=== PATIENT | female | born 1995 | race Two or more races ===

== ENCOUNTER 2017-12-28 02:16 | Inpatient (IN) | payer BC, MEDICARE ==
[~2017-12-28] VITALS: Ht 177.8 cm; Wt 87.8 kg
[2017-12-28] MEDS ORDERED: ALPR1TAB7 PO (02:25)
[2017-12-28 03:10] LABS: BASOPHILS % (AUTO) 0.4 % (0.0-2.0); EOSINOPHILS % (AUTO) 1.5 % (1.0-6.0); HEMATOCRIT 38.1 % (36-46); HEMOGLOBIN 12.8 g/dL (12.0-16.0); LYMPHOCYTES # (AUTO) 2.9 K/uL (1.0-4.8); LYMPHOCYTES % (AUTO) 48.7 % (22.0-44.0); MEAN CORPUSCULAR HGB CONC 33.7 G/dL (31.0-37.0); MEAN CORPUSCULAR VOLUME 86 fL (80-100); MONOCYTES # (AUTO) 0.5 K/uL (0.1-1.0); MONOCYTES % (AUTO) 7.9 % (2.0-9.0); NEUTROPHILS # (AUTO) 2.5 K/uL (1.8-7.7); NEUTROPHILS % (AUTO) 41.5 % (40.0-70.0); PLATELET COUNT (AUTO) 204 K/uL (150-450); RED BLOOD CELL COUNT(AUTO) 4.43 MIL/uL (4.00-5.20); RED CELL DISTRIBUTION WIDTH 18.5 % (11.5-14.5)
[2017-12-28 03:12] LABS: ANION GAP 4 mmol/L (8-16); CALCIUM, TOTAL 8.3 mg/dL (8.8-10.5); CARBON DIOXIDE 28 mmol/L (22-29); CHLORIDE 103 mmol/L (98-107); CREATININE 0.67 mg/dL (0.60-1.30); GLOMERULAR FILTR. RATE CALC > 60 mL/min (>60); GLUCOSE,RANDOM 86 mg/dL (70-110); POTASSIUM 3.7 mmol/L (3.5-5.1); SODIUM SERUM 135 mmol/L (136-145); UREA NITROGEN, BLOOD 11 mg/dL (7-18)
[2017-12-28 03:18] LABS: ALANINE AMINOTRANSFERASE 21 U/L (12-78); ALBUMIN 3.6 g/dL (3.4-5.0); ALKALINE PHOSPHATASE 88 U/L (46-116); ASPARTATE AMINOTRANSFERASE 16 U/L (15-37); BILIRUBIN,TOTAL 0.2 mg/dL (0.1-1.0); TOTAL PROTEIN, SERUM 7.6 g/dL (6.4-8.2)
[2017-12-28 03:49] LABS: AMPHET/METH SCREEN,URINE NEGATIVE (NEGATIVE); BARBITURATE SCREEN, URINE NEGATIVE (NEGATIVE); BENZODIAZEPINES SCREEN,URINE POSITIVE (NEGATIVE); CANNABINOID SCREEN,URINE NEGATIVE (NEGATIVE); COCAINE SCREEN,URINE NEGATIVE (NEGATIVE); METHADONE SCREEN, URINE NEGATIVE (NEGATIVE); OPIATE SCREEN,URINE NEGATIVE (NEGATIVE)
[2017-12-28 03:50] LABS: PHENCYCLIDINE SCREEN,URINE NEGATIVE (NEGATIVE)
[2017-12-28] MEDS ORDERED: HALOPERIDOL 5 MG TABLET PO PRN (12:00)
[2017-12-28] MEDS ORDERED: IBUPROFEN 400 MG TABLET PO PRN (15:00)
[2017-12-28] MEDS ORDERED: MAGNESIUM HYDROXIDE SUSPENSION 30 ML UDCUP PO PRN (15:00)
[2017-12-28] MEDS ORDERED: PETROLATUM,WHITE 71 GM JELLY TP PRN (15:00)
[2017-12-28] MEDS ORDERED: MAG HYDROX/AL HYDROX/SIMETH ES 30 ML SUSPENSION UDCUP PO PRN (15:00)
[2017-12-28] MEDS ORDERED: ALBUTEROL SULFATE HFA 90 MCG/PUFF 8 GM INHALER IH PRN (15:00)
[2017-12-28] MEDS ORDERED: DOCUSATE SODIUM 100 MG CAPSULE PO PRN (15:00)
[2017-12-28] MEDS ORDERED: ONDANSETRON HCL 4 MG TABLET PO PRN (15:00)
[2017-12-28 15:27] VITALS: BP 123/83
[2017-12-28 16:09] VITALS: BP 120/66
[2017-12-28] MEDS: LORazepam 2 MG TABLET PO PRN (17:43)
[2017-12-29 00:40] VITALS: BP 118/81
[2017-12-29] MEDS: ACETAMINOPHEN 325 MG TABLET PO PRN ×2 (00:44→21:56)
[2017-12-29 08:26] VITALS: BP 116/77
[2017-12-29] MEDS: MetroNIDAZOLE 500 MG TABLET PO SCH ×3 (08:37→16:35)
[2017-12-29 08:52] LABS: HEMOGLOBIN A1C 5.2 % (4.5-6.2)
[2017-12-29] MEDS ORDERED: NICOTINE 14 MG/24 HOUR PATCH TD SCH (09:00)
[2017-12-29 09:30] LABS: CHOL/HDL RATIO 2.5 (3.9-5.7); THYROID STIMULATING HORMONE 1.11 uIU/mL (0.36-3.74)
[2017-12-29] MEDS ORDERED: MAG HYDROX/AL HYDROX/SIMETH ES 30 ML SUSPENSION UDCUP PO PRN (11:00)
[2017-12-29] MEDS ORDERED: PETROLATUM,WHITE 71 GM JELLY TP PRN (11:00)
[2017-12-29] MEDS ORDERED: ALBUTEROL SULFATE HFA 90 MCG/PUFF 8 GM INHALER IH PRN (11:00)
[2017-12-29] MEDS ORDERED: MAGNESIUM HYDROXIDE SUSPENSION 30 ML UDCUP PO PRN (11:00)
[2017-12-29] MEDS ORDERED: DOCUSATE SODIUM 100 MG CAPSULE PO PRN (11:00)
[2017-12-29 16:01] VITALS: BP 123/75
[2017-12-29] MEDS: BusPIRone HCL 10 MG TABLET PO SCH (16:35)
[2017-12-29] MEDS: LORazepam 2 MG TABLET PO PRN (20:01)
[2017-12-29] MEDS: ZOLPIDEM TARTRATE 10 MG TABLET PO PRN (21:53)
[2017-12-30 00:16] VITALS: BP 115/60
[2017-12-30] MEDS: BusPIRone HCL 10 MG TABLET PO SCH ×2 (08:13→16:36)
[2017-12-30] MEDS: MetroNIDAZOLE 500 MG TABLET PO SCH ×3 (08:13→16:36)
[2017-12-30 08:30] VITALS: BP 122/73
[2017-12-30 16:11] VITALS: BP 125/71
[2017-12-30] MEDS: ZOLPIDEM TARTRATE 10 MG TABLET PO PRN (21:14)
[2017-12-31 01:10] VITALS: BP 109/60
[2017-12-31] MEDS: LORazepam 2 MG TABLET PO PRN (02:22)
[2017-12-31 08:08] VITALS: BP 110/62
[2017-12-31] MEDS: MetroNIDAZOLE 500 MG TABLET PO SCH ×3 (08:33→16:39)
[2017-12-31] MEDS: BusPIRone HCL 10 MG TABLET PO SCH ×2 (08:33→16:39)
[2017-12-31] MEDS: FLUoxetine HCL 20 MG CAPSULE PO SCH (08:33)
[2017-12-31 16:06] VITALS: BP 117/64
[2017-12-31] MEDS ORDERED: MIRTAZAPINE 15 MG TABLET PO SCH (21:00)
[2018-01-01 02:02] VITALS: BP 112/62
[2018-01-01 07:57] VITALS: BP 110/69
[2018-01-01] MEDS: MetroNIDAZOLE 500 MG TABLET PO SCH ×3 (08:28→16:03)
[2018-01-01] MEDS: BusPIRone HCL 10 MG TABLET PO SCH ×2 (08:28→16:03)
[2018-01-01] MEDS: FLUoxetine HCL 20 MG CAPSULE PO SCH (08:28)
[2018-01-01 08:45] LABS: ANION GAP 5 mmol/L (8-16); CALCIUM, TOTAL 8.5 mg/dL (8.8-10.5); CARBON DIOXIDE 27 mmol/L (22-29); CHLORIDE 102 mmol/L (98-107); CREATININE 0.69 mg/dL (0.60-1.30); GLOMERULAR FILTR. RATE CALC > 60 mL/min (>60); GLUCOSE,RANDOM 82 mg/dL (70-110); POTASSIUM 4.5 mmol/L (3.5-5.1); SODIUM SERUM 134 mmol/L (136-145); UREA NITROGEN, BLOOD 15 mg/dL (7-18)
[2018-01-01 09:10] VITALS: BP 110/69
[2018-01-01] MEDS ORDERED: BUSP10TA23 PO (13:49)
[2018-01-01] MEDS ORDERED: MIRT15 PO (13:49)
[2018-01-01] MEDS ORDERED: PROZ10 PO (13:50)
[2018-01-01] MEDS: ACETAMINOPHEN 325 MG TABLET PO PRN (15:05)
[2018-01-01 16:05] VITALS: BP 124/78
== END 2018-01-01 16:40 | disposition home or self-care (01) | DRG 881 ==
LOC: EMS 02:17 → B2X 12:16 → EMS 12:42 → B2X 13:16
PROVIDERS: ADMIT Psychiatry & Neurology Psychiatry; ATTEND Psychiatry & Neurology Psychiatry
DX: F32.9 Major depressive disorder, single episode, unspecified (principal); E87.1 Hypo-osmolality and hyponatremia; R45.851 Suicidal ideations; E83.51 Hypocalcemia; F29 Unspecified psychosis not due to a substance or known physiological condition; F60.3 Borderline personality disorder; F41.9 Anxiety disorder, unspecified; X58.XXXA Exposure to other specified factors, initial encounter; G47.00 Insomnia, unspecified; K21.9 Gastro-esophageal reflux disease without esophagitis; S61.512A Laceration without foreign body of left wrist, initial encounter; S80.12XA Contusion of left lower leg, initial encounter; Z79.899 Other long term (current) drug therapy; Z81.8 Family history of other mental and behavioral disorders; Z91.5 Personal history of self-harm; Y93.89 Activity, other specified; Y92.89 Other specified places as the place of occurrence of the external cause; Y99.8 Other external cause status
CPT/HCPCS: 83036; 84443; 86631; 86632; 99285; G0480; Q0162

== ENCOUNTER 2018-12-27 12:48 | Inpatient (IN) | payer BC, OTHER ==
[~2018-12-27] VITALS: Ht 165.1 cm; Wt 103.0 kg
[~2018-12-27 12:48] MED LIST: BUSP10TA23 PO; MIRT15 PO; PROZ10 PO
[2018-12-27] MEDS ORDERED: LIDOCAINE 2%/EPI 1:200,000/PF 20 ML VIAL INJ ONE (13:00)
[2018-12-27] MEDS ORDERED: SODIUM CHLORIDE 0.9% 1,000 ML IV ONE (13:00)
[2018-12-27 13:10] LABS: BASOPHILS % (AUTO) 0.4 % (0.0-2.0); EOSINOPHILS % (AUTO) 0.2 % (1.0-6.0); HEMATOCRIT 40.7 % (36-46); HEMOGLOBIN 13.1 g/dL (12.0-16.0); LYMPHOCYTES # (AUTO) 1.1 K/uL (1.0-4.8); LYMPHOCYTES % (AUTO) 15.2 % (22.0-44.0); MEAN CORPUSCULAR HEMOGLOBIN 29.2 pg (26.0-34.0); MEAN CORPUSCULAR HGB CONC 32.2 G/dL (31.0-37.0); MEAN CORPUSCULAR VOLUME 91 fL (80-100); MONOCYTES # (AUTO) 0.6 K/uL (0.1-1.0); MONOCYTES % (AUTO) 7.5 % (2.0-9.0); NEUTROPHILS # (AUTO) 5.7 K/uL (1.8-7.7); NEUTROPHILS % (AUTO) 76.7 % (40.0-70.0); PLATELET COUNT (AUTO) 236 K/uL (150-450); RED BLOOD CELL COUNT(AUTO) 4.48 MIL/uL (4.00-5.20); RED CELL DISTRIBUTION WIDTH 14.2 % (11.5-14.5)
[2018-12-27] MEDS ORDERED: SERT50TA12 PO (13:12)
[2018-12-27] MEDS ORDERED: ARIP2 PO (13:12)
[2018-12-27] MEDS ORDERED: TRAZ-252 PO (13:12)
[2018-12-27] MEDS ORDERED: RANI150T7 PO (13:12)
[2018-12-27] MEDS ORDERED: CLON2 PO (13:12)
[2018-12-27 13:20] LABS: ANION GAP 8 mmol/L (8-16); CALCIUM, TOTAL 8.4 mg/dL (8.8-10.5); CARBON DIOXIDE 27 mmol/L (22-29); CHLORIDE 101 mmol/L (98-107); CREATININE 0.67 mg/dL (0.60-1.30); GLOMERULAR FILTR. RATE CALC > 60 mL/min (>60); GLUCOSE,RANDOM 87 mg/dL (70-110); SODIUM SERUM 136 mmol/L (136-145); UREA NITROGEN, BLOOD 9 mg/dL (7-18)
[2018-12-27 13:26] LABS: SALICYLATE 0.3 mg/dL (2.8-20.0)
[2018-12-27 13:34] LABS: ACETAMINOPHEN < 2 mcg/mL (10-30); ALANINE AMINOTRANSFERASE 26 U/L (12-78); ALBUMIN 3.6 g/dL (3.4-5.0); ALKALINE PHOSPHATASE 71 U/L (46-116); ASPARTATE AMINOTRANSFERASE 49 U/L (15-37); BILIRUBIN,TOTAL 0.5 mg/dL (0.1-1.0); HCG,QUANTITATIVE < 1 mIU/mL (0-6); TOTAL PROTEIN, SERUM 7.5 g/dL (6.4-8.2)
[2018-12-27] MEDS ORDERED: BACITRACIN 0.9 GM PACKET OINTMENT TP ONE ×2 (14:43→14:45)
[2018-12-27 16:10] LABS: AMPHET/METH SCREEN,URINE NEGATIVE (NEGATIVE); BARBITURATE SCREEN, URINE NEGATIVE (NEGATIVE); BENZODIAZEPINES SCREEN,URINE POSITIVE (NEGATIVE); CANNABINOID SCREEN,URINE NEGATIVE (NEGATIVE); COCAINE SCREEN,URINE POSITIVE (NEGATIVE); METHADONE SCREEN, URINE NEGATIVE (NEGATIVE); OPIATE SCREEN,URINE NEGATIVE (NEGATIVE)
[2018-12-27 16:12] LABS: PHENCYCLIDINE SCREEN,URINE NEGATIVE (NEGATIVE)
[2018-12-27] MEDS ORDERED: ACETAMINOPHEN 325 MG TABLET PO PRN ×2 (18:00→20:30)
[2018-12-27] MEDS ORDERED: ZOLPIDEM TARTRATE 10 MG TABLET PO PRN (18:00)
[2018-12-27] MEDS ORDERED: IBUPROFEN 400 MG TABLET PO PRN ×2 (18:00→20:30)
[2018-12-27] MEDS ORDERED: LOPERAMIDE HCL 2 MG CAPSULE PO PRN (20:30)
[2018-12-27] MEDS ORDERED: DOCUSATE SODIUM 100 MG CAPSULE PO PRN (20:30)
[2018-12-27] MEDS ORDERED: PETROLATUM,WHITE 28 GM JELLY TP PRN (20:30)
[2018-12-27] MEDS ORDERED: ALBUTEROL SULFATE HFA 90 MCG/PUFF 8 GM INHALER IH PRN (20:30)
[2018-12-27] MEDS ORDERED: MAG HYDROX/AL HYDROX/SIMETH ES 30 ML SUSPENSION UDCUP PO PRN (20:30)
[2018-12-27] MEDS ORDERED: CloNIDine HCL 0.1 MG TABLET PO PRN (20:30)
[2018-12-27] MEDS ORDERED: MAGNESIUM HYDROXIDE SUSPENSION 30 ML UDCUP PO PRN (20:30)
[2018-12-27] MEDS ORDERED: ONDANSETRON HCL 4 MG TABLET PO PRN (20:30)
[2018-12-27] MEDS ORDERED: NICOTINE 14 MG/24 HOUR PATCH TD PRN (20:30)
[2018-12-27] MEDS ORDERED: GuaiFENesin/D-METHORPHAN [SUGAR-FREE] 200-20MG/10 ML SYRUP UDCUP PO PRN (20:30)
[2018-12-27 21:06] VITALS: BP 121/80
[2018-12-28 06:37] LABS: BASOPHILS % (AUTO) 1.6 % (0.0-2.0); EOSINOPHILS % (AUTO) 1.8 % (1.0-6.0); HEMATOCRIT 37.6 % (36-46); HEMOGLOBIN 12.2 g/dL (12.0-16.0); LYMPHOCYTES # (AUTO) 1.7 K/uL (1.0-4.8); LYMPHOCYTES % (AUTO) 38.8 % (22.0-44.0); MEAN CORPUSCULAR HEMOGLOBIN 29.5 pg (26.0-34.0); MEAN CORPUSCULAR HGB CONC 32.4 G/dL (31.0-37.0); MEAN CORPUSCULAR VOLUME 91 fL (80-100); MONOCYTES # (AUTO) 0.5 K/uL (0.1-1.0); MONOCYTES % (AUTO) 12.1 % (2.0-9.0); NEUTROPHILS % (AUTO) 45.7 % (40.0-70.0); PLATELET COUNT (AUTO) 200 K/uL (150-450); RED BLOOD CELL COUNT(AUTO) 4.13 MIL/uL (4.00-5.20)
[2018-12-28 06:44] LABS: HEMOGLOBIN A1C 5.5 % (4.5-6.2)
[2018-12-28 07:01] LABS: ALANINE AMINOTRANSFERASE 27 U/L (12-78); ALBUMIN 3.1 g/dL (3.4-5.0); ALKALINE PHOSPHATASE 65 U/L (46-116); ANION GAP 8 mmol/L (8-16); ASPARTATE AMINOTRANSFERASE 47 U/L (15-37); BILIRUBIN,TOTAL 0.3 mg/dL (0.1-1.0); CALCIUM, TOTAL 8.1 mg/dL (8.8-10.5); CARBON DIOXIDE 28 mmol/L (22-29); CHLORIDE 104 mmol/L (98-107); CHOL/HDL RATIO 2.9 (3.9-5.7); CHOLESTEROL 142 mg/dL (131-200); CREATININE 0.69 mg/dL (0.60-1.30); GLOMERULAR FILTR. RATE CALC > 60 mL/min (>60); GLUCOSE,RANDOM 93 mg/dL (70-110); HDL CHOLESTEROL 49 mg/dL (40-60); LDL CHOL (CALC.) 68 mg/dL (0-130); POTASSIUM 3.8 mmol/L (3.5-5.1); SODIUM SERUM 140 mmol/L (136-145); TOTAL PROTEIN, SERUM 6.3 g/dL (6.4-8.2); TRIGLYCERIDES 125 mg/dL (15-150); UREA NITROGEN, BLOOD 8 mg/dL (7-18)
[2018-12-28] MEDS: RANITIDINE HCL 150 MG TABLET PO SCH (09:33)
[2018-12-28 09:48] VITALS: BP 130/58
[2018-12-28] MEDS ORDERED: ARIP15TA2 PO (13:35)
[2018-12-28] MEDS ORDERED: FLUoxetine HCL 20 MG CAPSULE PO SCH (13:45)
[2018-12-28] MEDS ORDERED: FLUO-191 PO (13:54)
[2018-12-28] MEDS: ARIPiprazole 15 MG TABLET PO SCH (13:56)
[2018-12-28 16:56] VITALS: BP 115/55
[2018-12-28] MEDS: TraZODone HCL 50 MG TABLET PO SCH (20:07)
[2018-12-29 03:04] VITALS: BP 113/59
[2018-12-29 08:05] VITALS: BP 113/83
[2018-12-29] MEDS: ARIPiprazole 15 MG TABLET PO SCH ×2 (09:00→09:06)
[2018-12-29] MEDS: FLUoxetine HCL 10 MG CAPSULE PO SCH (09:06)
[2018-12-29] MEDS: RANITIDINE HCL 150 MG TABLET PO SCH (09:06)
[2018-12-29 16:52] VITALS: BP 108/66
[2018-12-29] MEDS: TraZODone HCL 50 MG TABLET PO SCH (20:14)
[2018-12-30] MEDS: FLUoxetine HCL 10 MG CAPSULE PO SCH (08:58)
[2018-12-30] MEDS: RANITIDINE HCL 150 MG TABLET PO SCH (08:58)
[2018-12-30] MEDS: ARIPiprazole 15 MG TABLET PO SCH ×2 (08:58→09:00)
[2018-12-30 10:39] VITALS: BP 119/77
[2018-12-30 16:28] VITALS: BP 116/59
[2018-12-30] MEDS: TraZODone HCL 50 MG TABLET PO SCH (20:38)
[2018-12-30] MEDS: HALOPERIDOL 5 MG TABLET PO PRN (23:58)
[2018-12-31 00:05] VITALS: BP 108/85
[2018-12-31 08:00] VITALS: BP 107/71
[2018-12-31] MEDS: ARIPiprazole 15 MG TABLET PO SCH ×2 (08:21)
[2018-12-31] MEDS: FLUoxetine HCL 20 MG CAPSULE PO SCH (08:21)
[2018-12-31] MEDS: RANITIDINE HCL 150 MG TABLET PO SCH (08:21)
[2018-12-31 16:25] VITALS: BP 115/59
[2018-12-31 18:38] LABS: APPEARANCE,URINE CLOUDY (CLEAR); BILIRUBIN,URINE NEGATIVE (NEGATIVE); GLUCOSE, URINE (UA) NEGATIVE (NEGATIVE); KETONES,URINE NEGATIVE (NEGATIVE); LEUKOCYTE ESTERASE ,URINE LARGE (NEGATIVE); NITRATE,URINE NEGATIVE (NEGATIVE); OCCULT BLOOD,URINE MODERATE (NEGATIVE); PROTEIN,URINE NEGATIVE (NEGATIVE); UROBILINOGEN,URINE 0.2 mg/dL (<=1.0)
[2018-12-31 20:12] LABS: RBC,URINE 0-2 /HPF (0-2)
[2018-12-31 20:13] LABS: BACTERIA,URINE Few /HPF (None Seen); SQUAMOUS EPITHELIAL CELL,UR Moderate /LPF (None Seen)
[2018-12-31] MEDS: TraZODone HCL 50 MG TABLET PO SCH (20:14)
[2019-01-01 03:44] VITALS: BP 124/76
[2019-01-01 08:15] VITALS: BP 129/68
[2019-01-01] MEDS: ARIPiprazole 15 MG TABLET PO SCH (09:10)
[2019-01-01] MEDS: FLUoxetine HCL 20 MG CAPSULE PO SCH (09:11)
[2019-01-01] MEDS: RANITIDINE HCL 150 MG TABLET PO SCH (09:11)
[2019-01-01] MEDS: CEPHALEXIN MONOHYDRATE 500 MG CAPSULE PO SCH ×3 (09:11→16:58)
[2019-01-01 19:01] VITALS: BP 104/58
[2019-01-01] MEDS: TraZODone HCL 50 MG TABLET PO SCH (20:22)
[2019-01-02] MEDS: CEPHALEXIN MONOHYDRATE 500 MG CAPSULE PO SCH ×3 (08:00→17:12)
[2019-01-02] MEDS: RANITIDINE HCL 150 MG TABLET PO SCH (08:00)
[2019-01-02] MEDS: ARIPiprazole 15 MG TABLET PO SCH (08:00)
[2019-01-02] MEDS: FLUoxetine HCL 20 MG CAPSULE PO SCH (08:00)
[2019-01-02 08:15] VITALS: BP 128/75
[2019-01-02] MEDS: LORazepam 2 MG TABLET PO PRN (12:45)
[2019-01-02 16:40] VITALS: BP 146/88
[2019-01-02] MEDS: TraZODone HCL 50 MG TABLET PO SCH (20:22)
[2019-01-03 08:30] VITALS: BP 130/68
[2019-01-03] MEDS: RANITIDINE HCL 150 MG TABLET PO SCH (08:32)
[2019-01-03] MEDS: FLUoxetine HCL 20 MG CAPSULE PO SCH (08:32)
[2019-01-03] MEDS: ARIPiprazole 15 MG TABLET PO SCH (08:32)
[2019-01-03] MEDS: CEPHALEXIN MONOHYDRATE 500 MG CAPSULE PO SCH ×3 (08:32→17:10)
[2019-01-03] MEDS: LORazepam 2 MG TABLET PO PRN (08:33)
[2019-01-03] MEDS: HALOPERIDOL 5 MG TABLET PO PRN (08:33)
[2019-01-03 16:58] VITALS: BP 109/79
[2019-01-03] MEDS: TraZODone HCL 50 MG TABLET PO SCH (21:06)
[2019-01-04 08:00] VITALS: BP 112/64
[2019-01-04] MEDS: ARIPiprazole 15 MG TABLET PO SCH (08:31)
[2019-01-04] MEDS: FLUoxetine HCL 20 MG CAPSULE PO SCH (08:31)
[2019-01-04] MEDS: RANITIDINE HCL 150 MG TABLET PO SCH (08:31)
[2019-01-04] MEDS: OLANZapine 5 MG TABLET PO SCH ×2 (12:46→16:22)
[2019-01-04] MEDS: HALOPERIDOL 5 MG TABLET PO PRN (12:46)
[2019-01-04] MEDS: LORazepam 2 MG TABLET PO PRN (12:46)
[2019-01-04 16:20] VITALS: BP 108/63
[2019-01-04] MEDS: TraZODone HCL 50 MG TABLET PO SCH (20:32)
[2019-01-05] MEDS: OLANZapine 5 MG TABLET PO SCH (08:10)
[2019-01-05] MEDS: ARIPiprazole 15 MG TABLET PO SCH (08:10)
[2019-01-05] MEDS: FLUoxetine HCL 20 MG CAPSULE PO SCH (08:10)
[2019-01-05] MEDS: RANITIDINE HCL 150 MG TABLET PO SCH (08:10)
[2019-01-05 09:53] VITALS: BP 133/79
[2019-01-05] MEDS ORDERED: OLAN5TAB2 PO (12:11)
== END 2019-01-05 14:50 | disposition home or self-care (01) | DRG 881 ==
LOC: EMS 12:50 → 3EI 18:59
PROVIDERS: ADMIT Psychiatry & Neurology Psychiatry; ATTEND Psychiatry & Neurology Psychiatry
PROC: 0HQEXZZ Repair Left Lower Arm Skin, External Approach (ICD-10-PCS; principal; 2018-12-27)
DX: F32.9 Major depressive disorder, single episode, unspecified (principal); D72.819 Decreased white blood cell count, unspecified; R74.0 Nonspecific elevation of levels of transaminase and lactic acid dehydrogenase [LDH]; E83.51 Hypocalcemia; K29.70 Gastritis, unspecified, without bleeding; S61.512A Laceration without foreign body of left wrist, initial encounter; X58.XXXA Exposure to other specified factors, initial encounter; T50.902A Poisoning by unspecified drugs, medicaments and biological substances, intentional self-harm, initial encounter; S50.819A Abrasion of unspecified forearm, initial encounter; G47.00 Insomnia, unspecified; F41.0 Panic disorder [episodic paroxysmal anxiety]; F14.10 Cocaine abuse, uncomplicated; F12.10 Cannabis abuse, uncomplicated; Y93.89 Activity, other specified; Y92.89 Other specified places as the place of occurrence of the external cause; Y99.8 Other external cause status
CPT/HCPCS: 12002; 83036; 84443; 87086; 93005; 99291; G0480; G0481